=== PATIENT | female | born 1955 | race American Indian/Alaskan Native ===

== ENCOUNTER 2022-06-23 07:25 | Day surgery (SDC) | payer MEDICARE, OTHER ==
[2022-06-23] MEDS ORDERED: ASPIRIN EC 325 MG TAB PO ONE (08:23)
[2022-06-23] MEDS ORDERED: SODIUM CHLORIDE 0.9% 500 ML 500 ML IV SCH (09:00)
[2022-06-23 09:02] LABS: Basophils # (Auto) 0.1 K/mm3 (0.0-0.1); Eosinophils # (Auto) 0.3 K/mm3 (0.0-0.4); Eosinophils % (Auto) 4.3 % (0.0-4.3); Hematocrit 40.4 % (30.3-42.9); Hemoglobin 13.8 gm/dl (10.1-14.3); Lymphocytes # (Auto) 2.3 K/mm3 (1.2-5.4); Mean Corpuscular HGB Conc 34 % (30-34); Mean Corpuscular Volume 73 fl (79-97); Monocytes # (Auto) 0.9 K/mm3 (0.0-0.8); Monocytes % (Auto) 11.8 % (0.0-7.3); Platelet Count 184 K/mm3 (140-440); Red Blood Count 5.53 M/mm3 (3.65-5.03); Red Cell Distribution Width 15.3 % (13.2-15.2)
[2022-06-23 09:24] LABS: Blood Urea Nitrogen 24 mg/dL (7-17); Calcium 9.3 mg/dL (8.4-10.2); Hemolysis Index 0
[2022-06-23 09:29] LABS: INR 0.86 (0.87-1.13)
[2022-06-23 09:30] LABS: Partial Thromboplastin Time 25.2 Sec. (24.2-36.6)
[2022-06-23 09:34] LABS: BUN/Creatinine Ratio 48
[2022-06-23] MEDS ORDERED: HEPARIN/NS 5000 UNIT/500ML 500 ML IR ONE (09:36)
[2022-06-23] MEDS ORDERED: HEPARIN 10,000 UNITS/10 ML VIAL ONE (09:36)
[2022-06-23] MEDS ORDERED: LIDOCAINE (1%) 10 MG/1 ML VIAL 20 ML MDV ONE (09:37)
--- NOTE | 2022-06-23 10:09 | Electrocardiograph Report ---
[facility] Test Date: 2022-06-23 Test Time: 09:08:14 Pat Name: EVELYNE PAYNE Department: Room: Gender: F [employer] [place]: MARTY : 1955 Requested By: TONY BRADY Order Number: [id number] Reading MD: Gui Wolf Measurements Intervals [place] Rate: 63 P: 57 UT: 148 QRS: 12 QRSD: 87 T: 57 QT: 437 QTc: 440 Interpretive Statements Sinus rhythm Atrial premature complex Consider left ventricular hypertrophy No previous ECG available for comparison Electronically Signed On 06-23-2022 10:09:27 EDT by Gui Wolf
[2022-06-23] MEDS ORDERED: fentaNYL 100 MCG/2 ML INJ ONE (10:23)
[2022-06-23] MEDS ORDERED: MIDAZOLAM 2 MG/2 ML INJ ONE (10:23)
[2022-06-23] MEDS ORDERED: hydrALAZINE 20 MG/1 ML INJ ONE (11:02)
--- NOTE | 2022-06-23 11:57 | Discharge Summary ---
Short Stay Discharge Plan Activity: advance as tolerated Weight Bearing Status: Partial Weight Bearing Diet: low fat, low cholesterol, low salt, diabetic Wound: keep clean and dry Special Instructions: smoking cessation, no heavy lifting (3 days) Follow up with: ARACELI DOLL MD [Primary Care Provider] - 7 Days TONY BRADY MD [Staff Physician] - 7 Days
[2022-06-23] MEDS ORDERED: SODIUM CHLORIDE 0.9% 1000 ML 1,000 ML IV SCH (12:00)
--- NOTE | 2022-06-23 12:00 | Cardiac Catherization Report ---
DATE OF SERVICE: 06/23/2022 REASON FOR PROCEDURE: Shortness of breath and aortic stenosis. The patient is a 67-year-old woman with shortness of breath and echocardiographic findings of mild aortic stenosis. She was referred for right and left heart catheterization. PROCEDURES: 1. Right heart catheterization. 2. Left heart catheterization. 3. Selective left and right coronary angiography. 4. Left ventricular angiography. 5. Sedation time start 10:49, end 11:06. DESCRIPTION OF PROCEDURE: The patient was prepped and draped in a sterile fashion after informed consent. The right femoral artery and vein were both entered using the Seldinger technique. A 6-Anguillan sheath was entered into the artery and an 8-Anguillan sheath in the vein. A Danevang-Monroe catheter was advanced to the pulmonary artery position. Cardiac output was measured using thermodilution method. A right Madeline catheter was then inserted into the left ventricle. Simultaneous left and right heart filling pressures were recorded. The Danevang-Monroe was then withdrawn and right heart pressures recorded on pullback. We performed left ventricular angiography with a hand injection using the right Madeline catheter. After that, the right Madeline was withdrawn across the aortic valve and transaortic gradient recorded. Selective left and right coronary angiography was performed using the right Madeline #4 and #4 left Madeline. The catheters were then withdrawn, sheaths withdrawn, hemostasis at both the femoral artery and vein was achieved using manual compression. The patient was returned to the postprocedure unit in stable condition. There were no complications. FINDINGS: HEMODYNAMICS: Mean right atrial pressure was 10. Right ventricular pressure was 40/12-15. Pulmonary artery pressure was 45/23. The mean pulmonary artery wedge pressure was 15-18. Left ventricular end-diastolic pressure was 18. Cardiac output was 5.9 liters per minute. AORTIC VALVE: On pullback across the aortic valve, there was no significant demonstrable gradient. The left ventricular systolic pressure was 196, and the ascending aortic pressure was 196/81. CORONARY ANGIOGRAPHY: The left main coronary artery was free of significant disease. The left anterior descending artery and its diagonal branches contained mild luminal irregularities. The circumflex artery and its obtuse marginal branches were free of significant disease. The right coronary artery was dominant and similarly free of significant disease. There was normal to hyperdynamic left ventricular systolic function with ejection fraction greater than 65%. CONCLUSION: 1. No significant transaortic gradient on cardiac catheterization, no significant aortic stenosis is demonstrated. 2. Mild increase in right and left heart filling pressures, mild pulmonary hypertension. 3. Mild irregularities as above, no significant coronary artery disease. 4. Normal to hyperdynamic left ventricular systolic function, ejection fraction greater than 65%. RECOMMENDATIONS: Risk factor modification and medical therapy. TID: [id number] RECEIPT: [id number] CA/SHE
[2022-06-23] MEDS ORDERED: traMADol 50 MG TAB PO PRN (12:30)
[2022-06-23 17:04] VITALS: BP 154/61
== END 2022-06-23 17:48 | disposition home or self-care (01) ==
LOC: CATHLABREC 07:25
PROVIDERS: ATTEND Internal Medicine Cardiovascular Disease
DX: R06.02 Shortness of breath (principal); I35.0 Nonrheumatic aortic (valve) stenosis; I25.10 Atherosclerotic heart disease of native coronary artery without angina pectoris; I27.20 Pulmonary hypertension, unspecified; E78.00 Pure hypercholesterolemia, unspecified; Z79.899 Other long term (current) drug therapy; Z79.4 Long term (current) use of insulin; Z79.82 Long term (current) use of aspirin
CPT/HCPCS: 36415; 80048; 82962; 85025; 85610; 85730; 93005; 93460; 99156; C1894; J0360; J1644; J2250; J3010; J7040; Q9967